=== PATIENT | male | born 1975 | race Two or more races ===

== ENCOUNTER 2018-02-04 17:06 | Emergency (ER) | payer OTHER ==
[~2018-02-04] VITALS: Ht 182.9 cm; Wt 92.0 kg
[2018-02-04 17:35] VITALS: BP 144/88
[2018-02-04] MEDS ORDERED: LIDOCAINE-MPF 2% ,5ML ONE (18:46)
[2018-02-04] MEDS ORDERED: PENICILLIN VK 500MG TABLET PO ONE (19:06)
[2018-02-04] MEDS ORDERED: PENICILLIN VK 500MG TABLET ONE (19:08)
[2018-02-04] MEDS ORDERED: IBUPROFEN 800 MG TABLET ONE (19:11)
[2018-02-04] MEDS ORDERED: IBUPROFEN 200 MG TABLET PO ONE (19:30)
== END 2018-02-04 19:21 | disposition home or self-care (01) ==
LOC: ED 19:15
DX: K04.6 Periapical abscess with sinus (principal); F17.200 Nicotine dependence, unspecified, uncomplicated
CPT/HCPCS: 41800; 99283